=== PATIENT | female | born 1975 | race Two or more races ===

== ENCOUNTER → 2018-03-07 | Emergency (ER) | payer OTHER ==
[~2018-03-07] VITALS: Ht 165.1 cm; Wt 65.8 kg
== END | disposition home or self-care (01) ==
LOC: ER 23:07
DX: J06.9 Acute upper respiratory infection, unspecified (principal)

== ENCOUNTER 2018-04-24 13:42 | Emergency (ER) | payer OTHER ==
[~2018-04-24] VITALS: Ht 157.5 cm; Wt 61.2 kg
[2018-04-24] MEDS ORDERED: NAPROXEN250 MG PO (14:14)
[2018-04-24] MEDS ORDERED: PEPCID AC20 MG PO (22:49)
[2018-04-24] MEDS ORDERED: LEVSIN/SL0.125 MG PO (22:49)
[2018-04-24] MEDS ORDERED: KETO10TA2 PO (22:49)
== END 2018-04-25 00:14 ==
LOC: ER 13:42
DX: K80.80 Other cholelithiasis without obstruction (principal)

== ENCOUNTER 2018-05-02 02:31 | Emergency (ER) | payer OTHER ==
[~2018-05-02] VITALS: Ht 157.5 cm; Wt 68.0 kg
[~2018-05-02 02:31] MED LIST: KETO10TA2 PO; LEVSIN/SL0.125 MG PO; NAPROXEN250 MG PO; PEPCID AC20 MG PO
[2018-05-02] MEDS ORDERED: NAPROXEN SODIU550 M1 PO (06:00)
== END 2018-05-02 06:19 | disposition home or self-care (01) ==
LOC: ER 02:31
DX: M25.511 Pain in right shoulder (principal)

== ENCOUNTER 2018-09-01 12:46 | Emergency (ER) | payer OTHER ==
[~2018-09-01] VITALS: Ht 157.5 cm; Wt 65.8 kg
[~2018-09-01 12:46] MED LIST changes: +NAPROXEN SODIU550 M1 PO
== END 2018-09-01 15:28 | disposition home or self-care (01) ==
LOC: ER 12:46
DX: M75.81 Other shoulder lesions, right shoulder (principal)

== ENCOUNTER 2019-08-05 20:31 | Emergency (ER) | payer OTHER ==
[~2019-08-05] VITALS: Ht 157.5 cm; Wt 66.2 kg
== END 2019-08-05 22:48 | disposition home or self-care (01) ==
LOC: ER 20:31
DX: M54.2 Cervicalgia (principal); M25.512 Pain in left shoulder; M25.511 Pain in right shoulder

== ENCOUNTER → 2019-08-13 | Outpatient (CLI) | payer OTHER | END | disposition home or self-care (01) | LOC: RAD 13:10 | DX: M54.2 Cervicalgia (principal) ==

== ENCOUNTER 2019-08-20 11:40 | Emergency (ER) | payer OTHER ==
[~2019-08-20] VITALS: Ht 157.5 cm; Wt 68.0 kg
[2019-08-20] MEDS ORDERED: AMOX1TAB5 (12:24)
[2019-08-20] MEDS ORDERED: AMOX-CLAV 875-1 EACH (12:25)
[2019-08-20] MEDS ORDERED: INTESTINEX680 M1 (12:26)
== END 2019-08-20 16:20 | disposition home or self-care (01) ==
LOC: ER 11:40
DX: G31.89 Other specified degenerative diseases of nervous system (principal); M13.88 Other specified arthritis, other site

== ENCOUNTER 2019-10-22 11:10 | Outpatient (CLI) | payer OTHER ==
[~2019-10-22 11:10] MED LIST changes: +AMOX-CLAV 875-1 EACH; +AMOX1TAB5; +INTESTINEX680 M1
== END 2019-10-22 11:20 | disposition home or self-care (01) ==
LOC: RAD 11:10
DX: M25.511 Pain in right shoulder (principal); M25.512 Pain in left shoulder